=== PATIENT | female | born 1950 | race Caucasian/White ===

== ENCOUNTER 2018-06-18 07:55 | Emergency (ER) | payer OTHER ==
[2018-06-18] MEDS ORDERED: NA CHLORIDE 0.9% 500 ML ONE (09:03)
[2018-06-18 09:15] LABS: Absolute Lymphocytes (CBC) 1.7 K/uL (0.7-4.9); Absolute Monocytes 0.4 K/uL (0.1-1.3); Absolute Neutrophil 2.9 K/uL (1.8-8.0); Basophils % 0.8 % (0-1.3); Eosinophils % 7.5 % (0-4.4); Hematocrit 44.4 % (36.0-45.0); Lymphocytes % 31.4 % (15.3-44.8); MCH 31.8 pg (27.0-35.0); MCV 94.3 fL (80-100); MPV 9.5 fL (7.6-11.3); Monocytes % 8.1 % (3.3-12.3); RBC Red Blood Cell Count 4.71 M/uL (3.86-4.86)
--- NOTE | 2018-06-18 09:30 | EDPHYS ---
Physician Documentation [facility] Name: Ros Wilks Age: 67 yrs Sex: Female : 1950 Arrival Date: 06/18/2018 Time: 07:57 Bed 8 Private MD: Armin Tang E ED Physician Manuel Cartwright HPI: 06/18 08:14 This 67 yrs old Female presents to ER via Ambulatory with complaints of Leg sachin Pain. 08:14 The patient presents with decreased range of motion, pain, that is acute. The sachin complaints affect the posterior aspect of right knee, right calf, right knee and right garcia. Context: The problem was sustained. Onset: The symptoms/episode began/occurred 3 day(s) ago. Modifying factors: The symptoms are alleviated by nothing. the symptoms are aggravated by nothing. Associated signs and symptoms: The patient has no apparent associated signs or symptoms. Severity of symptoms: At their worst the symptoms were mild, in the emergency department the symptoms are unchanged. Historical: - Allergies: 08:13 Augmentin; ss 08:13 biopatch; ss 08:13 Codeine; ss 08:13 Demerol; ss 08:13 hydrocodone cough syrup; ss 08:13 Invanz; ss 08:13 Iodine; ss 08:13 Latex, Natural Rubber; ss 08:13 Lescol; ss 08:13 Levaquin; ss 08:13 Silicone; ss 08:13 Sulfa (Sulfonamide Antibiotics); ss 08:13 tegaderm; ss 08:13 Adhesives; ss 08:13 biopatch; ss - PMHx: 08:13 High Cholesterol; Hypertension; ss - PSHx: 08:13 Hysterectomy; bilateral total knee replacement; L rotator cuff; sinus sx; ss - Immunization history:: Adult Immunizations up to date. - Social history:: Smoking status: Patient/guardian denies using tobacco. - Ebola Screening: : Patient denies exposure to infectious person Patient denies travel to an Ebola-affected area in the 21 days before illness onset. - Family history:: not pertinent. ROS: 08:14 Constitutional: Negative for fever, chills, and weight loss, Eyes: Negative for injury, sachin pain, redness, and discharge, ENT: Negative for injury, pain, and discharge, Neck: Negative for injury, pain, and swelling, Cardiovascular: Negative for chest pain, palpitations, and edema, Respiratory: Negative for shortness of breath, cough, wheezing, and pleuritic chest pain, Abdomen/GI: Negative for abdominal pain, nausea, vomiting, diarrhea, and constipation, Back: Negative for injury and pain, : Negative for injury, bleeding, discharge, and swelling, Skin: Negative for injury, rash, and discoloration, Neuro: Negative for headache, weakness, numbness, tingling, and seizure, Psych: Negative for depression, anxiety, suicide ideation, homicidal ideation, and hallucinations, Allergy/Immunology: Negative for hives, rash, and allergies, Endocrine: Negative for neck swelling, polydipsia, polyuria, polyphagia, and marked weight changes, Hematologic/Lymphatic: Negative for swollen nodes, abnormal bleeding, and unusual bruising. 08:14 MS/extremity: Positive for pain, tenderness, of the lateral aspect of right calf, right calf, medial aspect of right calf and right garcia. Exam: 08:14 Constitutional: This is a well developed, well nourished patient who is awake, alert, sachin and in no acute distress. Head/Face: Normocephalic, atraumatic. Eyes: Pupils equal round and reactive to light, extra-ocular motions intact. Lids and lashes normal. Conjunctiva and sclera are non-icteric and not injected. Cornea within normal limits. Periorbital areas with no swelling, redness, or edema. ENT: Nares patent. No nasal discharge, no septal abnormalities noted. Tympanic membranes are normal and external auditory canals are clear. Oropharynx with no redness, swelling, or masses, exudates, or evidence of obstruction, uvula midline. Mucous membranes moist. Neck: Trachea midline, no thyromegaly or masses palpated, and no cervical lymphadenopathy. Supple, full range of motion without nuchal rigidity, or vertebral point tenderness. No Meningismus. Chest/axilla: Normal chest wall appearance and motion. Nontender with no deformity. No lesions are appreciated. Cardiovascular: Regular rate and rhythm with a normal S1 and S2. No gallops, murmurs, or rubs. Normal PMI, no JVD. No pulse deficits. Respiratory: Lungs have equal breath sounds bilaterally, clear to auscultation and percussion. No rales, rhonchi or wheezes noted. No increased work of breathing, no retractions or nasal flaring. Abdomen/GI: Soft, non-tender, with normal bowel sounds. No distension or tympany. No guarding or rebound. No evidence of tenderness throughout. Back: No spinal tenderness. No costovertebral tenderness. Full range of motion. Skin: Warm, dry with normal turgor. Normal color with no rashes, no lesions, and no evidence of cellulitis. Neuro: Awake and alert, GCS 15, oriented to person, place, time, and situation. Cranial nerves II-XII grossly intact. Motor strength 5/5 in all extremities. Sensory grossly intact. Cerebellar exam normal. Normal gait. Psych: Awake, alert, with orientation to person, place and time. Behavior, mood, and affect are within normal limits. 08:14 Musculoskeletal/extremity: Extremities: noted in the lateral aspect of right calf, right calf, medial aspect of right calf and right garcia: decreased ROM, pain, ROM: no acute changes, Circulation is intact in all extremities. the right leg Compartment Syndrome exam of affected extremity: is normal. Joints: All joints are normal except Weight bearing: able to fully bear weight, Tendon exam: specific tendon testing normal through active and passive range of motion DVT Exam: no appreciated bluish discoloration, no erythema, no increased warmth, pain, swelling, tenderness, positive Homans' sign noted on exam. Vital Signs: 08:13 Height 5 ft. 3 in. (160.02 cm); Pain 5/10; ss 08:13 BP 153 / 60; Pulse 73; Resp 16; Temp 97.6; Pulse Ox 97% on R/A; ca1 09:20 BP 150 / 55; Pulse 71; Resp 11; Pulse Ox 95% ; bp 10:29 BP 138 / 46; Pulse 71; Resp 18; Pulse Ox 100% on R/A; ca1 MDM: 07:59 Patient medically screened. sachin 09:26 Data reviewed: vital signs, nurses notes, lab test result(s), radiologic studies, [facility] doppler. 06/18 08:12 Order name: CBC with Diff; Complete Time: 09:21 [facility] 06/18 08:12 Order name: Comprehensive Metabolic Panel; Complete Time: 09:43 [facility] 06/18 08:12 Order name: PT-INR; Complete Time: 09:43 [facility] 06/18 08:12 Order name: US Extremity Venous W Compression Anupam [facility] 06/18 08:12 Order name: Ptt, Activated; Complete Time: 09:43 sachin Administered Medications: 09:20 Drug: NS 0.9% 500 ml Route: IV; Rate: bolus; Site: left hand; bp Disposition: 06/18/18 09:29 Discharged to Home. Impression: Pain in right lower leg, Edema, unspecified. - Condition is Stable. - Discharge Instructions: Edema, Musculoskeletal Pain, Pain Without a Known Cause, Edema, [id number]. - Prescriptions for Motrin IB 200 mg Oral Tablet - take 2 tablet by ORAL route every 6 hours As needed as needed with food; 30 tablet. - Medication Reconciliation Form, Thank You Letter, Antibiotic Education, Prescription Opioid Use form. - Follow up: Armin Tang; When: 2 - 3 days; Reason: Recheck today's complaints, Continuance of care, Re-evaluation by your physician. - Problem is new. - Symptoms have improved. Signatures: Dispatcher [employer] EDMS Manuel Cartwright MD MD cha Smirch, Shelby RN RN ss Loyd Campos RN RN bp Katelyn Cisneros RN RN ca1 Corrections: (The following items were deleted from the chart) 11:51 09:29 06/18/2018 09:29 Discharged to Home. Impression: Pain in right lower leg; Edema, ca1 unspecified. Condition is Stable. Discharge Instructions: Musculoskeletal Pain, Pain Without a Known Cause. Prescriptions for Motrin IB 200 mg Oral Tablet - take 2 tablet by ORAL route every 6 hours As needed as needed with food; 30 tablet. and Forms are Medication Reconciliation Form, Thank You Letter, Antibiotic Education, Prescription Opioid Use. Follow up: Armin Tang; When: 2 - 3 days; Reason: Recheck today's complaints, Continuance of care, Re-evaluation by your physician. Problem is new. Symptoms have improved. sachin
--- NOTE | 2018-06-18 09:30 | ER ---
Nurse's Notes [facility] Name: Ros Wilks Age: 67 yrs Sex: Female : 1950 Arrival Date: 06/18/2018 Time: 07:57 Bed 8 Private MD: Armin Tang E Diagnosis: Pain in right lower leg;Edema, unspecified Presentation: 06/18 08:08 Presenting complaint: Patient states: R leg pain and swelling that began 1 week ago and ss has been getting worse. Pt states, "I believe I have a blood clot.". Transition of care: patient was not received from another setting of care. Onset of symptoms was June 11, 2018. Risk Assessment: Do you want to hurt yourself or someone else? Patient reports no desire to harm self or others. Initial Sepsis Screen: Does the patient meet any 2 criteria? No. Patient's initial sepsis screen is negative. Does the patient have a suspected source of infection? No. Patient's initial sepsis screen is negative. Care prior to arrival: None. 08:08 Method Of Arrival: Ambulatory ss 08:08 Acuity: TONEY 3 ss Historical: - Allergies: 08:13 Augmentin; ss 08:13 biopatch; ss 08:13 Codeine; ss 08:13 Demerol; ss 08:13 hydrocodone cough syrup; ss 08:13 Invanz; ss 08:13 Iodine; ss 08:13 Latex, Natural Rubber; ss 08:13 Lescol; ss 08:13 Levaquin; ss 08:13 Silicone; ss 08:13 Sulfa (Sulfonamide Antibiotics); ss 08:13 tegaderm; ss 08:13 Adhesives; ss 08:13 biopatch; ss - PMHx: 08:13 High Cholesterol; Hypertension; ss - PSHx: 08:13 Hysterectomy; bilateral total knee replacement; L rotator cuff; sinus sx; ss - Immunization history:: Adult Immunizations up to date. - Social history:: Smoking status: Patient/guardian denies using tobacco. - Ebola Screening: : Patient denies exposure to infectious person Patient denies travel to an Ebola-affected area in the 21 days before illness onset. - Family history:: not pertinent. Screenin:10 Abuse screen: Denies threats or abuse. Nutritional screening: No deficits noted. ca1 Tuberculosis screening: No symptoms or risk factors identified. Fall Risk None identified. Assessment: 08:10 General: Appears in no apparent distress. comfortable, Behavior is calm, cooperative. ca1 Pain: Complains of pain in right leg Pain does not radiate. Pain currently is 5 out of 10 on a pain scale. Quality of pain is described as sharp, Pain began 1 day ago. Is continuous. 08:10 Neuro: Level of Consciousness is awake, alert, obeys commands, Oriented to person, ca1 place, time, situation. Cardiovascular: Heart tones S1 S2 present. Respiratory: Airway is patent Trachea midline Respiratory effort is even, unlabored, Respiratory pattern is regular, symmetrical, Breath sounds are clear bilaterally. GI: Abdomen is round Bowel sounds present X 4 quads. Abd is soft and non tender X 4 quads. : No signs and/or symptoms were reported regarding the genitourinary system. Derm: Skin is pink, warm \\T\\ dry. Musculoskeletal: Circulation, motion, and sensation intact. 09:20 Reassessment: U/S COMPLETED, RESULTS PENDING. IVF INFUSING, VS REMAIN STABLE. bp 10:05 Reassessment: Patient appears in no apparent distress at this time. Patient and/or ca1 family updated on plan of care and expected duration. Pain level reassessed. Patient is alert, oriented x 3, equal unlabored respirations, skin warm/dry/pink. awaiting ultrasound result. . Vital Signs: 08:13 Height 5 ft. 3 in. (160.02 cm); Pain 5/10; ss 08:13 BP 153 / 60; Pulse 73; Resp 16; Temp 97.6; Pulse Ox 97% on R/A; ca1 09:20 BP 150 / 55; Pulse 71; Resp 11; Pulse Ox 95% ; bp 10:29 BP 138 / 46; Pulse 71; Resp 18; Pulse Ox 100% on R/A; ca1 ED Course: 07:57 Patient arrived in ED. as 07:58 Armin Tang MD is Private Physician. as 07:59 Manuel Cartwright MD is Attending Physician. sachin 08:06 Katelyn Cisneros, DAVID is Primary Nurse. ca1 08:10 Triage completed. ss 08:10 Arm band placed on right wrist. ca1 08:10 Placed in gown. Bed in low position. Call light in reach. ca1 08:40 Missed attempt(s): 24 gauge in left forearm. ca1 08:54 Initial lab(s) drawn, by me, sent to lab. Inserted saline lock: 24 gauge in left hand, aa5 using aseptic technique. Blood collected. 09:21 US Extremity Venous W Compression Anupam In Process Unspecified. EDMS 09:22 Ultrasound completed. Patient tolerated well. Notified ED Physician shirin. sg3 09:29 Armin Tang MD is Referral Physician. sachin 10:44 No provider procedures requiring assistance completed. ca1 11:48 IV discontinued, intact, bleeding controlled, No redness/swelling at site. Pressure ca1 dressing applied. Administered Medications: 09:20 Drug: NS 0.9% 500 ml Route: IV; Rate: bolus; Site: left hand; bp Outcome: :29 Discharge ordered by MD. sachin 11:48 Discharged to home ambulatory. ca1 11:48 Condition: stable 11:48 Discharge instructions given to patient, Instructed on discharge instructions, follow up and referral plans. medication usage, Demonstrated understanding of instructions, follow-up care, medications, Prescriptions given X 1. 11:51 Patient left the ED. ca1 Signatures: Dispatcher [employer] EDMS Manuel Cartwright MD MD cha Martinez, Amelia as Calderon, Audri, RN RN aa5 Odessa Moore RN RN ss Loyd Campos RN RN Tricia Marquis sg3 Katelyn Cisneros RN RN ca1
[2018-06-18 09:37] LABS: Protime INR 0.93
[2018-06-18 09:38] LABS: Albumin 3.8 g/dL (3.4-5.0); Bilirubin Total 0.7 mg/dL (0.2-1.0); Potassium 3.9 mmol/L (3.5-5.1); Protein, Total 7.2 g/dL (6.4-8.2)
--- NOTE | 2018-06-18 10:54 | RAD REPORT ---
EXAM DESCRIPTION: US - Extrem Venous W Compress Anupam - 06/18/2018 9:21 am CLINICAL HISTORY: PAIN Bilateral leg edema and swelling. COMPARISON: No comparisons TECHNIQUE: Real-time sonographic interrogation of the left and right lower extremity deep venous sys tems was performed. FINDINGS: Normal compressibility, flow augmentation, phasic flow and spontaneous flow is identified in both the left and right lower extremity deep venous systems. Edema is noted in the right calf fran on. IMPRESSION: No sonographic evidence of left or right lower extremity deep venous thrombosis.
== END 2018-06-18 11:51 | disposition home or self-care (01) ==
LOC: ER 07:55
DX: M79.661 Pain in right lower leg (principal); R60.9 Edema, unspecified
CPT/HCPCS: 36415; 80053; 85025; 85610; 85730; 93970; 99284